=== PATIENT | male | born 1945 | race Caucasian/White ===

== ENCOUNTER 2017-12-20 14:34 | Emergency (ER) | payer MEDICARE ==
[~2017-12-20] VITALS: Ht 177.8 cm; Wt 99.3 kg
[2017-12-20] MEDS ORDERED: CEPHALEXIN500 M1 PO (15:55)
== END 2017-12-20 15:54 | disposition home or self-care (01) ==
LOC: ED 14:34
DX: S80.852A Superficial foreign body, left lower leg, initial encounter (principal); W22.8XXA Striking against or struck by other objects, initial encounter; Y93.89 Activity, other specified; Y92.89 Other specified places as the place of occurrence of the external cause; Y99.9 Unspecified external cause status

== ENCOUNTER → 2019-04-23 | Outpatient (CLI) | payer MEDICARE ==
[~2019-04-23] MED LIST: CEPHALEXIN500 M1 PO
== END | disposition home or self-care (01) ==
LOC: US 14:14
DX: M79.652 Pain in left thigh (principal); G89.18 Other acute postprocedural pain

== ENCOUNTER 2023-09-23 12:07 | Emergency (ER) | payer MEDICARE ==
[~2023-09-23] VITALS: Ht 175.2 cm; Wt 102.1 kg
[2023-09-23 12:26] LABS: BASO # 0.1 10*3/uL (0.0-0.1); BASO % 0.9 % (0.0-1.0); EOS # 0.2 10*3/uL (0.0-0.4); EOS % 2.7 % (1.0-4.0); HEMATOCRIT 46.6 % (42.0-52.0); LYMPH # 2.1 10*3/uL (1.3-4.4); LYMPH % 32.4 % (27.0-41.0); MEAN CELL VOLUME 93.6 fl (80.0-94.0); MEAN CORPUSCULAR HGB 30.5 pg (27.0-31.0); MEAN CORPUSCULAR HGB CONC 32.6 g/dl (33.0-37.0); MEAN PLATELET VOLUME 10.3 fl (9.6-12.3); MONO # 0.5 10*3/uL (0.1-1.0); MONO % 7.5 % (3.0-9.0); NEUT # 3.7 10*3/uL (2.3-7.9); NEUT % 56.3 % (47.0-73.0); PLATELET COUNT AUTOMATED 200 10*3/uL (130-400); RED BLOOD COUNT 4.98 10*6/uL (4.50-5.90); RED CELL DISTRI WIDTH 12.3 % (0-14.5); WHITE BLOOD COUNT 6.6 10*3/uL (4.8-10.8)
[2023-09-23 12:45] LABS: BUN 14 mg/dl (9-23); CHLORIDE 106 mmol/L (98-107); POTASSIUM 4.1 mmol/L (3.4-5.1)
[2023-09-23] MEDS ORDERED: predniSONE 20 MG TAB PO ONE (14:40)
[2023-09-23] MEDS ORDERED: PREDNISONE50 MG PO (14:42)
== END 2023-09-23 14:46 | disposition home or self-care (01) ==
LOC: ED 12:07 → EDBD 12:16 → ED 12:16
PROVIDERS: Internal Medicine
DX: M79.602 Pain in left arm (principal); R07.89 Other chest pain; Z91.040 Latex allergy status